=== PATIENT | female | born 1970 | race Two or more races ===

== ENCOUNTER 2018-12-18 10:53 | Emergency (ER) | payer MEDICAID ==
[~2018-12-18] VITALS: Ht 152.4 cm; Wt 68.0 kg
--- NOTE | 2018-12-18 10:55 | NUR ---
AAOx3, BIBRA 89 from home c/o right ankle pain and swelling s/p slipped and fell, -ko. RR is even and unlabored with NAD noted. Skin is warm and dry. Awaiting MD for eval.
[2018-12-18] MEDS ORDERED: HYDROCODONE/APAP 10/325MG 1 EA TABLET ONE (11:09)
[2018-12-18] MEDS ORDERED: HYDROCODONE/APAP 10/325MG 1 EA TABLET PO ONE (11:30)
[2018-12-18 12:54] VITALS: BP 136/98
== END 2018-12-18 12:55 | disposition home or self-care (01) ==
LOC: ER 10:57
DX: S82.891A Other fracture of right lower leg, initial encounter for closed fracture (principal); W01.0XXA Fall on same level from slipping, tripping and stumbling without subsequent striking against object, initial encounter; Y93.89 Activity, other specified; Y92.89 Other specified places as the place of occurrence of the external cause; Y99.8 Other external cause status
CPT/HCPCS: 29515; 73610; 99283; A4606; Z7610